=== PATIENT | female | born 2005 | race African-American/Black ===

== ENCOUNTER 2024-06-11 13:04 | Outpatient (CLI) | payer OTHER, SELFPAY ==
--- NOTE | 2024-06-11 13:00 | CRLHL7_ITS ---
For Patients: As a result of the Cures Act, medical imaging exams and procedure reports are released immediately into your electronic medical record. You may view this report before your referring provider. If you have questions, please contact your health care provider. INDICATION: Screening for respiratory tuberculosis TECHNIQUE: Chest radiograph 2 views COMPARISON: None FINDINGS: Mediastinum: The mediastinum is normal in appearance. The heart silhouette is normal in size and morphology. Lung: Both lungs are partially obscured by metallic brassiere clips. Both lungs are unremarkable in appearance. No sign of pleural effusion seen. No pneumothorax is identified. Bone and Soft tissue: Trace scoliosis is seen in the upper thoracic spine. IMPRESSION: 1. No acute cardiopulmonary or active granulomatous disease is seen. Dictated by Kian Swan MD @ 06/11/2024 2:40:25 PM Dictated by: Kian Swan MD @ 06/11/2024 14:40:29 (Electronically Signed)
== END 2024-06-11 13:05 | disposition home or self-care (01) ==
LOC: RAD 13:09
PROVIDERS: Visit Provider Nurse Practitioner
DX: Z11.1 Encounter for screening for respiratory tuberculosis (principal)
CPT/HCPCS: 71046